=== PATIENT | male | born 1970 | race Caucasian/White ===

== ENCOUNTER 2021-05-17 23:11 | Emergency (ER) | payer SELFPAY ==
[~2021-05-17] VITALS: Ht 182.9 cm; Wt 163.3 kg
[2021-05-17 23:30] VITALS: BP 156/91
== END 2021-05-18 00:13 | disposition home or self-care (01) ==
LOC: ER 23:17 → EDSEX 23:17 → ER 05-18 00:13
DX: M79.10 Myalgia, unspecified site (principal); F41.9 Anxiety disorder, unspecified; I11.0 Hypertensive heart disease with heart failure; I50.9 Heart failure, unspecified; J44.9 Chronic obstructive pulmonary disease, unspecified; E78.00 Pure hypercholesterolemia, unspecified

== ENCOUNTER 2024-01-29 06:02 | Day surgery (SDC) | payer OTHER ==
[2024-01-29] MEDS ORDERED: BUPIVACAINE 0.5 % PF 150 MG/30 ML VIAL ONE (06:49)
[2024-01-29] MEDS ORDERED: ANESTHESIA TRAY IN PYXIS 1 EA TRAY MC ONE ×2 (06:49→09:07)
[2024-01-29] MEDS ORDERED: EPINEPHRINE (1:1000) 1 MG/ML AMPUL ONE (06:50)
[2024-01-29] MEDS ORDERED: ROCURONIUM BROMIDE 50 MG/5 ML ONE (07:17)
[2024-01-29] MEDS ORDERED: ROPIVACAINE HCL 0.5% 5 MG/ML 30ML VIAL ONE (07:17)
[2024-01-29] MEDS ORDERED: FENTANYL PF 250MCG/5ML AMPUL ONE (07:18)
[2024-01-29] MEDS ORDERED: LABETALOL HCL IV 100MG VIAL ONE (07:35)
[2024-01-29] MEDS ORDERED: FENTANYL PF 100MCG/2ML AMPUL ONE (09:03)
[2024-01-29] MEDS ORDERED: ONDANSETRON HCL/PF 4 MG/2 ML VIAL ONE (09:49)
== END 2024-01-29 10:23 | disposition home or self-care (01) ==
LOC: DS 06:02
PROVIDERS: ATTEND Student in an Organized Health Care Education/Training Program
DX: M75.102 Unspecified rotator cuff tear or rupture of left shoulder, not specified as traumatic (principal); I10 Essential (primary) hypertension; E78.5 Hyperlipidemia, unspecified; E66.01 Morbid (severe) obesity due to excess calories; Z68.42 Body mass index [BMI] 45.0-49.9, adult; Z98.890 Other specified postprocedural states; Z79.82 Long term (current) use of aspirin; Z79.899 Other long term (current) drug therapy
CPT/HCPCS: 29826; 29827; A4217; C1713; J0171; J0690; J1200; J2405; J2704; J2795; J3010; J3490